=== PATIENT | female | born 1935 | race Caucasian/White ===

== ENCOUNTER → 2022-08-30 | Outpatient (CLI) | payer MEDICARE, SELFPAY ==
[2022-08-30 12:30] VITALS: PULSE 64; PULSE 67; PULSE 84; O2SAT 78; O2SAT 88; O2SAT 90; O2SAT 98
--- NOTE | 2022-08-30 13:19 | CPS ---
Patient came in on 2L SpO2 was in the 90's. Patient placed on RA for approximately 3 min and SpO2 dropped to 88%. Patient placed back on 1.5L(what she normally wears) and SpO2 came up to high 90's. Patient very unsteady and needs 2 person assist to get up from wheelchair. Patient normally does not walk much at home, only to the bathroom and back. Patient started test on 1.5L, at the 2 min clemente the patient's SpO2 was 78%. Patient was not SOB but walking takes maximal exertion. Patient's NC turned to 4L and rested in wheelchair. Patient walked another lap on 4L and at the 3 min clemente her pulse ox dropped to 88%. Patient had already walked much more then she ever will, so the test was stopped. Patient was not SOB through the whole test. Jimena KOCH
--- NOTE | 2022-08-31 05:39 | PCM.PSN.6M ---
PSN 6 Minute Walk Test 6 Minute Walk Test 6 Minute Walk Test: 6 Minute Walk Test PSN:6-Minute Walk Test Start: 08/30/22 13:10 Freq: Status: Active Protocol: RESP.6MINW Document 08/30/22 12:30 JR (Rec: 08/30/22 13:19 JR [id number]) 6 Minute Walk Test Date Performed 08/30/22 Time Performed 12:30 Height 5 ft 2 in Weight: 64.864 kg Weight in Pounds 143.[address]: Marcelino Stanton Assistive device used: None Pre-test Oxygen Delivery Method Room Air Pulse Ox (%) 88 Pulse Rate (60-100 beats/min) 67 Dyspnea Norma Scale (0-10) 0 Exertion Norma Scale (6-20) 6 1st minute Oxygen Flow Rate (L/min) (L/min) 1.5 Oxygen Delivery Method Nasal Cannula Pulse Ox (%) 90 Dyspnea Norma Scale (0-10) 0 Exertion Norma Scale (6-20) 13 2nd minute Oxygen Flow Rate (L/min) (L/min) 1.5 Oxygen Delivery Method Nasal Cannula Pulse Ox (%) 78 Pulse Rate (60-100 beats/min) 84 Dyspnea Norma Scale (0-10) 0 Exertion Norma Scale (6-20) 13 3rd minute Oxygen Flow Rate (L/min) (L/min) 4 Oxygen Delivery Method Nasal Cannula Pulse Ox (%) 88 Pulse Rate (60-100 beats/min) 84 Dyspnea Norma Scale (0-10) 0 Exertion Norma Scale (6-20) 13 Post-test Oxygen Flow Rate (L/min) (L/min) 4 Oxygen Delivery Method Nasal Cannula Pulse Ox (%) 98 Pulse Rate (60-100 beats/min) 64 Full Laps Walked 2 Partial Lap, Number of Tiles Walked 15 Total Distance Walked (ft) 133 Interpretation Interpretation: Therapy notes were reviewed. Patient noted to be 88% on room air and was placed on 1-1/2 L/min. Patient was significant musculoskeletal limitations and required 2 people to get up from a wheelchair. Patient ultimately required 5 L/min of supplemental oxygen to maintain saturations with ambulation. Patient was able to ambulate with the assistance of a walker for only 3 minutes and 133 feet, but family stated that this was much more than she ever well at home. These findings are consistent with a respiratory and musculoskeletal limitation exercise tolerance. Recommendations Recommendations: The patient requires 2 L/min at rest and 5 L/min with any exertion
== END | disposition home or self-care (01) ==
PROVIDERS: PCP Family Medicine; Visit Provider Internal Medicine Critical Care Medicine
DX: R09.02 Hypoxemia (principal)
CPT/HCPCS: 94618

== ENCOUNTER → 2022-09-02 | Outpatient (CLI) | payer MEDICARE, SELFPAY ==
--- NOTE | 2022-09-04 10:16 | PFT_ITS ---
INTRODUCTION: The patient is an 87-year-old female that presents for pulmonary function studies secondary to a diagnosis of hypoxemia. Respiratory therapy reported that the patient was unable to exhale enough volume to render a DLCO reading. Bronchodilators were used during testing. INTERPRETATION: Forced expiration spirometry demonstrates no evidence of a large airways o bstructive ventilatory defect. There was no significant response to aerosolized bronchodilators. Spirograms are of fair quality and plateau normally. Body plethysmography was performed and revealed a decreased TLC to 2.67 L, 62% of predicted, indicative of a moderate restrictive ventilatory impairment. Diffusing capacity was unable to be obtained. IMPRESSION: Moderate restrictive ventilatory impairment. Diffusing capacity was unable to be obtained.
== END | disposition home or self-care (01) ==
LOC: PSN 12:48
PROVIDERS: PCP Family Medicine; Visit Provider Internal Medicine Critical Care Medicine
DX: R09.02 Hypoxemia (principal)
CPT/HCPCS: 94060; 94726

== ENCOUNTER → 2022-10-09 | Outpatient (CLI) | payer MEDICARE, SELFPAY ==
--- NOTE | 2022-10-09 14:58 | CT_ITS ---
INDICATION: Difficulty breathing, hypoxia EXAMINATION: CT CHEST WITHOUT CONTRAST - CT Chest W/O Contrast Injection TECHNIQUE: Helically acquired images were obtained of the chest. A radiation dose optimization technique was used for this scan. IV Contrast dosage and agent: None. COMPARISON: None. FINDINGS: LUNGS, PLEURA AND LARGE AIRWAYS: Lung windows show diffuse interstitial fibrotic changes in both lung lomeli with honeycombing) the periphery of both lung lomeli, extending from apex to base. Diffuse septal thickening and evidence of peribronchial thickening suggestive of chronic bronchitis. There is no organized infiltrate or effusion. The pattern of opacification is suggestive of UIP. THYROID: No thyroid lesions. HEART AND PERICARDIUM: Heart size is normal. No pericardial effusion. CORONARY ARTERIES: Coronary artery calcification is seen. VESSELS: Thoracic aorta is not dilated. MEDIASTINUM AND BELKIS: No suspicious mediastinal or hilar adenopathy. There is a retrocardiac hiatal hernia with thickening of the distal esophagus suggesting reflux esophagitis. UPPER ABDOMEN: Limited cuts of the upper abdomen do not show a suspicious abnormality, there is a bowel loop interposed between the anterior edge of the liver and the peritoneal surface. BONES: Degenerative bony changes noted. CT/Chest without Contrast IMPRESSION: Diffuse interstitial fibrotic changes in both lung lomeli without organized infiltrate or effusion. There is also evidence of chronic bronchitis. No suspicious noncalcified mass or nodule. Findings in the lungs most suggestive of UIP. Calcified coronary vessels Degenerative bony changes No suspicious adenopathy Retrocardiac hiatal hernia with evidence to suspect GE reflux Electronically Signed: Varghese Hurtado MD at 10:08 EDT ,
== END | disposition home or self-care (01) ==
LOC: CT 14:57
PROVIDERS: PCP Family Medicine; Referring Provider Nurse Practitioner Acute Care; Visit Provider Nurse Practitioner Acute Care
DX: R09.02 Hypoxemia (principal)
CPT/HCPCS: 71250

== ENCOUNTER 2023-01-19 15:27 | Inpatient (IN) | payer MEDICARE, SELFPAY ==
[2023-01-19] VITALS (16 sets, daily range): BP systolic 115–174; BP diastolic 61–114; PULSE 64–76; RESP 12–44; TEMP 35.9–37.2; O2SAT 90–95; BMI 24.4
--- NOTE | 2023-01-19 15:34 | HP.PCM.HOS_ITS ---
HPI - General General Date of Admission: 01/19/23 Date of Service: 01/19/23 Chief Complaint: Shortness of breath HPI Narrative TORIBIO LEVINE, is a 88-year-old female history of pulmonary fibrosis on 2 L O2 at home, GERD, hypertension, bronchiectasis who presented to 01/19/2023 as a transfer from [facility] for to hypoxic respiratory failure. Patient fairly poor historian so history taken in part from report, patient and, largely from . Reportedly patient on Friday started saying she was not feeling well and had some vomiting and diarrhea and was not tolerating p.o. and felt very dehydrated so they presented to [facility] on Friday afternoon and she was admitted. reports that then evening she was not acting right and progressively over the past couple of days her breathing has gotten worse and they have intermittently had her on BiPAP and Airvo. He reports her breathing was otherwise in his usual state before evening. At [facility] she was pancultured and on vancomycin and Zosyn and also placed on steroids but continued to have high O2 requirements. Stable for transfer vancomycin was discontinued and she was on Zosyn and azithromycin, cultures have thus far been no growth. As she is established with Dr. Stanton for pulmonology hospitalist contacted for transfer given inability to wean O2. Patient seen with son at bedside and spoke with as well, patient reports her breathing might be slightly better than it was yesterday, endorses some left arm pain that is possibly been present since before the hospital but she had difficulty with timeline and symptomatology but possibly from elbow down. Reports somewhat of a cough since yesterday, still think she has been having some diarrhea but does not necessarily have abdominal pain and no significant nausea at this time. Denies chest pain. [facility] Medical History (Updated 01/19/23 @ 16:[address] Karen Schaeffer MD) Arthritis Bone fracture Bunion of unspecified foot Cataracts, both eyes GERD (gastroesophageal reflux disease) Gout Hearing problem History of back problems Hyperlipidemia Hypertension IBS (irritable bowel syndrome) Neuropathy Osteopenia Pneumonia Stroke Vision problems Home Medications allopurinol 200 mg tablet 200 mg PO DAILY 07/25/22 [History Last Taken Unknown] aspirin 81 mg tablet,delayed release 81 mg PO DAILY 07/25/22 [History Last Taken Unknown] atenolol 50 mg tablet 50 mg PO DAILY 07/25/22 [History Last Taken Unknown] doxepin 25 mg capsule 25 mg PO DAILY 07/25/22 [History Last Taken Unknown] enalapril maleate 5 mg tablet 20 mg PO DAILY HTN 07/25/22 [History Last Taken Unknown] furosemide 20 mg tablet 20 mg PO DAILY PRN 07/25/22 [History Last Taken Unknown] ibuprofen 600 mg tablet 600 mg PO Q8H PRN 07/25/22 [History Last Taken Unknown] sertraline 50 mg tablet 50 mg PO DAILY 07/25/22 [History Last Taken Unknown] guaifenesin 1,200 mg tablet, extended release 12 hr 1,200 mg PO Q12H #60 tabs 11/08/22 [Rx Last Taken Unknown] amoxicillin 875 mg-potassium clavulanate 125 mg tablet 1 tab PO BID #20 tabs 12/13/22 [Rx Last Taken Unknown] prednisone 10 mg tablet 10 mg PO QDAY #30 tabs 12/13/22 [Rx Last Taken Unknown] Allergy/AdvReac Type Severity Reaction Status Date / Time No Known Allergies Allergy Unverified 11/08/22 14:11 Family History (Reviewed 11/08/22 @ 14:35 by Emma Baker MECHANICAL ENGINEERING INTERN, MECHANICAL ENGINEERING INTERN-C) Father Alcoholism Mother Arthritis Cancer uterine Myocardial infarction Heart disease Surgical History (Reviewed 11/08/22 @ 14:35 by Emma Baker MECHANICAL ENGINEERING INTERN, MECHANICAL ENGINEERING INTERN-C) H/O cataract extraction H/O shoulder surgery H/O: hysterectomy History of tonsillectomy Social History Smoking Status: Never smoker alcohol intake: never substance use type: does not use ROS ROS Narrative General: Denies fever/chills, generalized malaise HENT: Denies headache, denies stuffy nose, denies sore throat EYES: Denies changes in vision Resp: Shortness of breath and cough Cardiac: Denies chest pain GI: Denies abdominal pain, nausea has been better than it was, has been having diarrhea : Has Briggs in place Extremity: Denies swelling MSK: Feels somewhat generally weak, left arm hurts Neuro: Denies any numbness/tingling Heme: Denies any bleeding or bruising Skin: Denies rashes Psychiatric: Feels somewhat anxious Vital Signs Vital Signs Vital Signs: Weight Weight: 60.6 kg Body Mass Index (BMI) 24.4 Physical Exam Narrative General: Alert, is a poor historian HEENT: Atraumatic, normocephalic Eyes: Anicteric, normal conjunctiva, extraocular movements grossly intact Neck: Supple Respiratory: Coarse, increased work of breathing Cardiovascular: Regular rate and rhythm GI: Soft, nontender, nondistended Extremities: No edema Musculoskeletal: Moving all extremities Neuro: No overt focal neurological deficits Skin: No rashes appreciated Psych: Appears slightly anxious Results Lab / Micro Data 01/19/23 16:30 01/19/23 16:30 Assessment & Plan Assessment/Plan (1) Acute and chronic respiratory failure with hypoxia: (2) Arthritis: (3) Bronchiectasis: (4) Pulmonary fibrosis: (5) Osteopenia: (6) Neuropathy: (7) Hypertension: (8) GERD (gastroesophageal reflux disease): (9) Diarrhea: PLAN: Plan #Acute on chronic hypoxic respiratory failure w/ pulmonary fibrosis and bron chiectasis on 2 L home O2 -Developed shortness of breath the day after admission for dehydration and diarrhea, BNP and chest x-ray ordered to assess for component of fluid overload, patient reportedly had been diuresed -Daily weights, I's and O's -Per echocardiogram at [facility] did not show any heart failure, records from [facility] indicate EF of 55 to 60% with mild concentric left ventricular hypertrophy, RVSP of 35 and inability to assess diastolic dysfunction -Additionally had a CTA 01/15 with no PE but multifocal infiltrates and had several chest x-rays most recent 01/18 with persistent bilateral multifocal infiltrates with possible minimal improvement in aeration in the right lung. -Continue O2, continue nebs, alb prn -continue Zosyn at this time -Obtain sputum culture if positive and will obtain COVID PCR -Feels reasonable to continue steroids at this time -Mucinex -Incentive spirometry, flutter valve -Medical Care Manager consult -We will obtain chest x-ray and labs as well -Her last pulmonary function studies were in August 2022 and demonstrated moderate restrictive ventilatory impairment in diffusion capacity unable to be obtained at that time. She most recently saw pulm in October 2022 and palliative was consulted and advised to follow-up with Dr. Stanton in 3 months -At that appointment 11/08/2022 it noted that within 6 months she had 2 respiratory illnesses that required antibiotics and/or hospitalizations -Patient on Airvo on presentation 80% with O2 sats low 90s, does have increased work of breathing, will trial BiPAP #Nausea and diarrhea -These were present on her initial admission on Friday and were what took her to the hospital because she felt very dehydrated and weak -It is possible that she received IVF and may have relative component of fluid overload though cannot rule out other etiologies -Viral panels, will obtain stool studies as well -I's and O's -Supportive care, patient still reports diarrhea but endorses that her nausea has overall been better -We will order KUB to assess for any abdominal patterns #Elevated troponin at [facility] -Troponin on presentation was 142 at [facility] with an EKG with nonischemic changes -No chest pain, suspect this is all demand in nature -Do not feel it is needed to repeat as patient not having chest pain and minimal concern for ACS #Urinary tract infection -[facility] facility documented urinary tract infection early sepsis as she had been febrile at her doctor's office and was tachycardic in the emergency department -UA there did have bacteria 3+, leuk esterase and nitrate -Do not see any culture results available -Continue Zosyn, will get blood cultures and UA #Elevated liver enzymes -AST 79 with ALT of 88 -Suspect this is secondary to critical illness but will currently working up infectious etiologies, no right upper quadrant pain at this time and alk phos within normal limits -Recheck in the a.m. #Leukocytosis -May be due to underlying infectious etiology +/- being on steroids, will trend, continue antibiotics #Hypokalemia -At [facility] -Recheck, will replace accordingly #Hypertension -We will monitor BP and add back home medications as appropriate #DVT ppx: Lovenox subcu CODE status:Discussed CODE status at length including difference between FULL code, DNR-CCA, and DNR-CC status with both patient and . Following discussions about the differences in these status, requested DNR/DNI but want all other interventions available up to that point. Advanced Care Planning Face to Face Time: 20 minutes. Karen Schaeffer MD Time spent in the patient's overall evaluation,decision-making process, review of diagnostic data, adjustment of management, discussion with other providers, nursing nursing and ancillary staff involved in patient's care documentation, 85 minutes Charges/Coding Visit Charges Inpatient E&M: 14069 Init Hosp L3
--- NOTE | 2023-01-19 16:30 | RAD_ITS ---
INDICATION: n and diarrhea EXAMINATION/TECHNIQUE: X-RAY - XR Abdomen 1 View COMPARISON: None FINDINGS: BOWEL GAS PATTERN: Nonspecific bowel gas pattern with multiple segments of gas-filled large and small bowel with only minimal distention. No daniel bowel obstruction. No evidence of pneumatosis. FREE AIR: Not assessed on a single supine view. ORGANOMEGALY: Not seen. CALCIFICATIONS: No abnormal calcifications observed. LOWER CHEST: No acute pathology. BONES AND SOFT TISSUES: Diffuse lumbar spondylosis mild to moderate levoscoliotic curvature. RAD/Abdomen Single View (Portable) IMPRESSION: 1. Gas-filled large and small bowel segments without evidence of obstruction. No pneumatosis. Electronically Signed: Damir Mcclure MD at 19:17 EDT ,
[2023-01-19 16:36] LABS: Absolute Lymphocyte Count 1.78 X10^3/uL (0.83-4.51); Absolute Neutrophil Count 18.1 X10^3/uL (2.0-7.7); Basophil# 0.06 X10^3/uL; Basophil% 0.3 % (0-1); Hematocrit 36.8 % (37-47); Hemoglobin 12.4 g/dL (12.0-15.0); Lymphocyte # 1.78 X10^3/ul (0.83-4.51); Lymphocyte % 7.7 % (19-41); Mean Corp Hgb Conc 33.7 g/dL (32-36); Mean Corpuscular Hgb 28.1 pg (27.0-32.0); Mean Corpuscular Volume 83.3 fL (81-99); Mean Platelet Vol. 9.7 fl (6.2-12.0); Monocyte# 2.35 X10^3/uL; Monocyte% 10.2 % (0-10); NRBC Flagged by Analyzer 0 % (0-5); Neutrophil # 18.07 X10^3/uL (2.7-7.7); Neutrophil % 78.5 % (47-70); POSITIVE DIFFERENTIAL YES; Platelet Count 434 K/mm3 (150-450); RBC Distribution Width CV 17.2 % (11.6-14.6); RBC Distribution Width SD 52.3 fl (35.1-43.9); Red Blood Count 4.42 M/mm3 (4.2-5.4)
[2023-01-19 16:37] LABS: Differential Indicated SCAN CRITERIA MET
--- NOTE | 2023-01-19 16:45 | RAD_ITS ---
INDICATION: acute hypoxic resp failure EXAMINATION/TECHNIQUE: X-RAY - XR Chest 1 View COMPARISON: CT of the chest dated 10/09/2022 FINDINGS: LIFE-SUPPORT AND LINES: 1. None HEART AND VESSELS: Cardiac silhouette is large. Vascular congestion noted. LUNGS AND PLEURAL SPACES: Elevation RIGHT hemidiaphragm extensive coarse interstitial prominence bilaterally corresponding to the CT abnormalities. Moderate asymmetry in the RIGHT upper lobe. No airspace consolidation. No effusion. No pulmonary mass is noted. MEDIASTINUM AND HILAR REGIONS: No masses adenopathy noted. No areas of calcification. Visualized upper airway is normal in position. BONY ELEMENTS: Remote postoperative changes of reverse RIGHT shoulder arthroplasty. RAD/Chest 1 View (Portable) IMPRESSION: 1. Cardiomegaly, and vascular congestion. 2. Extensive diffuse interstitial prominence bilaterally, background pattern of chronic interstitial lung disease corresponding to recent CT however mild worsening at the RIGHT apex, and superimposed infiltrate is consideration. No consolidation, no effusion. Electronically Signed: Damir Mcclure MD at 18:50 EDT ,
[2023-01-19 16:53] LABS: ALB/GLOB Ratio 0.4 RATIO (0.9-2.4); AST(SGOT) 79 U/L (15-37); Alanine Aminotransfer ALT/SGPT 88 U/L (13-56); Albumin, Serum 2.3 g/dL (3.2-5.0); Alkaline Phosphatase 90 U/L (45-117); Anion Gap 6 (5-15); BUN 24 mg/dL (7-18); BUN/Creat Ratio 25.4 RATIO (10-20); Calcium,Total 8.4 mg/dL (8.5-10.1); Chloride 104 mmol/L (98-107); Creatinine, Serum 0.94 mg/dL (0.55-1.02); EST Glomerular Filtration Rate 60 mL/min (>60); Est Glom Filt Rate - Afr Amer 72 mL/min (>60); Estimated Creatinine Clearance 33.98 ml/min; Globulin 5.8 g/dL (2.2-4.2); Glucose 110 mg/dL (74-106); Magnesium 1.6 mg/dL (1.6-2.6); Potassium 3.7 mmol/L (3.5-5.1); Protein, Total 8.1 g/dL (6.4-8.2); Sodium Level 141 mmol/L (136-145)
[2023-01-19] MEDS: Haloperidol Lactate 5 MG/ML Vial IV (16:56)
[2023-01-19] MEDS: 0.9% Saline Lock 10 ML Syringe IV ×2 (16:57→22:23)
[2023-01-19 17:02] LABS: Differential Comment SCANNED
[2023-01-19 17:05] LABS: BNP,B-Type NATRIURETIC PEPTIDE 419.6 pg/mL (0-100)
[2023-01-19 17:16] LABS: Bacteria 0 SEEN /hpf (None Seen); Mucous, Urine 0 SEEN /hpf (<or=2+)
[2023-01-19 17:18] LABS: Color, Urine Yellow (Yellow); Glucose, Dipstick Normal (Normal); Ketone-Dipstick Negative (Negative); Leukocyte Esterase-Dipstick 100 /ul (Negative); Nitrite-Dipstick Negative (Negative); Occult Blood-Urine 50 /ul (Negative); Protein-Dipstick 30 mg/dl (Negative); Specific Gravity, Urine 1.015 (1.002-1.030); Urine Bilirubin Dipstick Negative (Negative); Urine Clarity Sl. Cloudy (Clear); Urine Urobilinogen Normal (Normal)
[2023-01-19 17:31] LABS: Amorphous Sediment 1+ URATE; Red Blood Cells-Urine 5-10 SEEN /hpf (0-5); Squamous Epithelial Cells - UA 0-5 SEEN /hpf (5-10); White Blood Cells 10-25 SEEN /hpf (0-5)
[2023-01-19] MEDS: Furosemide 40 MG/4 ML Vial IV (18:22)
[2023-01-19] MEDS: Magnesium Sulfate 4gm/100mL 4 GM/100 ML IV.SOLN. IV (18:22)
[2023-01-19 18:43] LABS: M R Staph aureus DNA By PCR Negative (Negative); Probe Check PASS; Specimen Processing Control PASS
[2023-01-19] MEDS: Ipratropium/Albuterol Sulfate 3 ML AMPUL.NEB INHALATION ×2 (19:07→22:45)
[2023-01-19] MEDS: guaiFENesin 1,200 MG Tablet 1200 MG PO (21:41)
[2023-01-20] VITALS (25 sets, daily range): BP systolic 108–150; BP diastolic 56–81; PULSE 57–85; RESP 12–36; TEMP 35.8–37.1; O2SAT 89–98; BMI 24.1
[2023-01-20] MEDS: Ipratropium/Albuterol Sulfate 3 ML AMPUL.NEB INHALATION ×6 (04:07→23:38)
[2023-01-20 04:56] LABS: Absolute Lymphocyte Count 1.72 X10^3/uL (0.83-4.51); Absolute Neutrophil Count 14.1 X10^3/uL (2.0-7.7); Basophil% 0.6 % (0-1); Hematocrit 37.6 % (37-47); Hemoglobin 12.4 g/dL (12.0-15.0); Lymphocyte # 1.72 X10^3/ul (0.83-4.51); Mean Corpuscular Hgb 27.7 pg (27.0-32.0); Mean Corpuscular Volume 84.1 fL (81-99); Mean Platelet Vol. 9.7 fl (6.2-12.0); Monocyte# 0.76 X10^3/uL; Monocyte% 4.4 % (0-10); NRBC Flagged by Analyzer 0 % (0-5); Neutrophil # 14.06 X10^3/uL (2.7-7.7); Neutrophil % 81.6 % (47-70); Platelet Count 409 K/mm3 (150-450); RBC Distribution Width CV 17.2 % (11.6-14.6); RBC Distribution Width SD 52.6 fl (35.1-43.9); Red Blood Count 4.47 M/mm3 (4.2-5.4); White Blood Count 17.2 K/mm3 (4.4-11.0)
[2023-01-20 05:30] LABS: ALB/GLOB Ratio 0.4 RATIO (0.9-2.4); AST(SGOT) 60 U/L (15-37); Alanine Aminotransfer ALT/SGPT 88 U/L (13-56); Albumin, Serum 2.4 g/dL (3.2-5.0); Alkaline Phosphatase 93 U/L (45-117); Anion Gap 7 (5-15); BUN 33 mg/dL (7-18); BUN/Creat Ratio 35.8 RATIO (10-20); Calcium,Total 8.5 mg/dL (8.5-10.1); Chloride 101 mmol/L (98-107); Creatinine, Serum 0.92 mg/dL (0.55-1.02); EST Glomerular Filtration Rate 61 mL/min (>60); Est Glom Filt Rate - Afr Amer 74 mL/min (>60); Estimated Creatinine Clearance 34.72 ml/min; Globulin 5.8 g/dL (2.2-4.2); Glucose 192 mg/dL (74-106); Magnesium 3.2 mg/dL (1.6-2.6); Potassium 3.3 mmol/L (3.5-5.1); Protein, Total 8.2 g/dL (6.4-8.2); Sodium Level 140 mmol/L (136-145)
[2023-01-20] MEDS: 0.9% Saline Lock 10 ML Syringe IV (06:30)
--- NOTE | 2023-01-20 07:26 | PN.HOSP_ITS ---
Reason for Visit Reason for Visit: Diagnoses Polyneuropathy, unspecified (01/19/23) Essential (primary) hypertension (01/19/23) Bronchiectasis, uncomplicated (01/19/23) Pulmonary fibrosis, unspecified (01/19/23) Acute and chronic respiratory failure with hypoxia (01/19/23) Gastro-esophageal reflux disease without esophagitis (01/19/23) Unspecified osteoarthritis, unspecified site (01/19/23) Other specified disorders of bone density and structure, unspecified site (01/19/23) Diarrhea, unspecified (01/19/23) Subjective Subjective Patient is an 88-year-old lady with history of pulmonary fibrosis on home oxygen admitted with progressive shortness of breath and assessment of acute on chronic hypoxic respiratory failure made admitted for subsequent inpatient management Objective Data Objective Data Vital Signs: Vital Signs Temp Pulse Resp BP Pulse Ox O2 Del Method O2 Flow Rate 98.7 F 70 30 H 136/72 H 97 Bi-pap 55 01/20/23 04:00 01/20/23 07:04 01/20/23 07:04 01/20/23 06:00 01/20/23 07:04 01/20/23 06:00 01/19/23 22:00 FiO2 65 01/20/23 07:04 Oxygen Flow Rate (L/min) 55 Oxygen Delivery Method Bi-pap Weight: 59.6 kg Body Mass Index (BMI) 24.1 Intake & Output: Intake and Output for Last 24 Hours 01/18/23 01/19/23 01/20/23 23:59 23:59 23:59 Intake Total 150 / 350 200 / 200 Output Total 325 / 1125 1000 / 1000 Balance -175 / -775 -800 / -800 Lab / Micro Data 01/20/23 04:45 01/20/23 04:45 Labs: Laboratory Results - last 24 hr 01/19/23 16:30: WBC 23.0 H, RBC 4.42, Hgb 12.4, Hct 36.8 L, MCV 83.3, MCH 28.1, MCHC 33.7, RDW Std Deviation 52.3 H, RDW Coeff of Zbigniew 17.2 H, Plt Count 434, MPV 9.7, Immature Gran % (Auto) 3.300 H, Neut % (Auto) 78.5 H, Lymph % (Auto) 7.7 L, [place] % (Auto) 10.2 H, Eos % (Auto) 0.0, Baso % (Auto) 0.3, Absolute Neuts (auto) 18.1 H, Absolute Lymphs (auto) 1.78, Nucleated RBC % 0, Differential Comment SCANNED, Diff Path Review October, Sodium 141, Potassium 3.7, Chloride 104, Carbon Dioxide 31.0, Anion Gap 6, BUN 24 H, Creatinine 0.94, Estim Creat Clear Calc 33.98, Est GFR (MDRD) Af Amer 72, Est GFR (MDRD) Non-Af 60, BUN/Creatinine Ratio 25.4 H, Glucose 110 H, Calcium 8.4 L, Magnesium 1.6, Total Bilirubin 0.70, AST 79 H, ALT 88 H, Alkaline Phosphatase 90, B-Natriuretic Peptide 419.6 H, Total Protein 8.1, Albumin 2.3 L, Globulin 5.8 H, Albumin/Globulin Ratio 0.4 L 01/19/23 17:10: Urine Color Yellow, Urine Clarity Sl. Cloudy, Urine pH 6.0, Ur Specific [place] 1.015, Urine Protein 30 H, Urine Glucose (UA) Normal, Urine Ketones Negative, Urine Occult Blood 50 H, Urine Nitrite Negative, Urine Bilirubin Negative, Urine Urobilinogen Normal, Ur Leukocyte Esterase 100 H, Urine RBC 5-10 SEEN, Urine WBC 10-25 SEEN, Ur Squamous Epith Cells 0-5 SEEN, Amorphous Sediment 1+ URATE, Urine Bacteria 0 SEEN, Urine Mucus 0 SEEN, MRSA (PCR) Negative 01/20/23 04:45: WBC 17.2 H, RBC 4.47, Hgb 12.4, Hct 37.6, MCV 84.1, MCH 27.7, MCHC 33.0, RDW Std Deviation 52.6 H, RDW Coeff of Zbigniew 17.2 H, Plt Count 409, MPV 9.7, Immature Gran % (Auto) 3.400 H, Neut % (Auto) 81.6 H, Lymph % (Auto) 10.0 L , [place] % (Auto) 4.4, Eos % (Auto) 0.0, Baso % (Auto) 0.6, Absolute Neuts (auto) 14.1 H, Absolute Lymphs (auto) 1.72, Nucleated RBC % 0, Sodium 140, Potassium 3.3 L, Chloride 101, Carbon Dioxide 32.0, Anion Gap 7, BUN 33 H, Creatinine 0.92, Estim Creat Clear Calc 34.72, Est GFR (MDRD) Af Amer 74, Est GFR (MDRD) Non-Af 61, BUN/Creatinine Ratio 35.8 H, Glucose 192 H, Calcium 8.5, Magnesium 3.2 H, Total Bilirubin 0.90, AST 60 H, ALT 88 H, Alkaline Phosphatase 93, Total Protein 8.2, Albumin 2.4 L, Globulin 5.8 H, Albumin/Globulin Ratio 0.4 L, TSH 0.30 L Micro: Microbiology 01/19/23 15:40 Mucosa - Nasopharyngeal Respiratory Panel (PCR) - Final 01/19/23 15:40 Mucosa - Nasopharyngeal Coronavirus COVID-19 PCR - Final 01/19/23 17:10 Urine Catheter - Briggs Legionella Antigen - Final 01/19/23 17:10 Urine Catheter - Briggs Streptococcus pneumoniae Antigen (M - Final Radiography Diagnostic Testing: Radiology Impression KUB X-Ray 01/19/23 16:30 IMPRESSION: 1. Gas-filled large and small bowel segments without evidence of obstruction. No pneumatosis. Electronically Signed: Damir Mcclure MD at 19:17 EDT , Chest X-Ray 01/19/23 16:45 IMPRESSION: 1. Cardiomegaly, and vascular congestion. 2. Extensive diffuse interstitial prominence bilaterally, background pattern of chronic interstitial lung disease corresponding to recent CT however mild worsening at the RIGHT apex, and superimposed infiltrate is consideration. No consolidation, no effusion. Electronically Signed: Damir Mcclure MD at 18:50 EDT , Physical Exam Narrative GENERAL: Neck at rest on airvo HEENT: Atraumatic; normocephalic EYES; Anicteric, Normal Conjunctiva NECK; supple, normal thyroid, RESPIRATORY: Diminished to auscultation CARDIOVASCULAR: Regular S1 S2, GI: soft, normoactive bowel sounds, : No Renal angle tenderness; EXTREMITIES: No edema, no clubbing, MUSCULOSKELETAL: no muscle wasting NEURO: Awake; no lateralizing signs. SKIN: No Rash PSYCH; Flat affect Assessment & Plan Assessment/Plan (1) Acute and chronic respiratory failure with hypoxia: PLAN: Plan Patient is an 88-year-old lady with history of pulmonary fibrosis on home oxygen admitted with progressive shortness of breath and assessment of acute on chronic hypoxic respiratory failure made admitted for subsequent inpatient management 1. Acute on chronic hypoxic respiratory failure ? Secondary to combination of pulmonary fibrosis as well as bronchiectasis admitted to the intensive care unit placed on noninvasive ventilation BiPAP patient was also started on antibiotic therapy with Zosyn in addition to systemic steroid and bronchodilator treatment. Discussion regarding hospice/palliative care held with family 2. Elevated troponin ? Suspected to be secondary to demand ischemia we will continue monitoring 3. Acute cystitis ? Patient is on antibiotic therapy will follow up with culture result 4. Hypokalemia ? Corrected per protocol 5. Hypertension - Blood pressure controlled, home medications continued with dose adjustment as needed 6. DVT prophylaxis ? SC Lovenox Time spent in the patient's overall evaluation,decision-making process, review of diagnostic data, adjustment of management, discussion with other providers, nursing nursing and ancillary staff involved in patient's care documentation, 50 minutes Charges/Coding Visit Charges Inpatient E&M: 36815 [facility] L3
--- NOTE | 2023-01-20 08:07 | CON.PCM.CC_ITS ---
Assessment & Plan Assessment/Plan (1) Acute and chronic respiratory failure with hypoxia: PLAN: Plan RECOMMENDATIONS: 1. Wean FiO2 to maintain oxygen saturations at or above 90%. 2. Continue bronchodilators and steroids. 3. Continue empiric antimicrobials. 4. Continue gentle diuresis as tolerated by hemodynamics and renal function. 5. Continue appropriate DVT prophylaxis. 6. Mobilize patient as tolerated. 7. Given plans for patient to proceed with hospice care enrollment, we will sign off. Please call with any additional questions. IMPRESSIONS: 1. Acute on chronic hypoxemic respiratory failure The patient has a baseline 2 L/min oxygen requirement at rest and 5 L/min with exertion. In addition, she has baseline radiographic evidence of pulmonary fibrosis. The patient was ultimately transferred to [facility] from an outside hospital due to failure to wean supplemental O2. I do suspect that this is likely secondary to hypervolemia coupled with progressive interstitial disease and potential superimposed pneumonia. Therefore, I agree with continuing gentle diuresis as tolerated by hemodynamics and renal function. In addition, the patient will be continued on empiric antimicrobials along with bronchodilators and steroids. Plan to continue heated high flow oxygen with a goal to wean FiO2 to maintain saturations at or above 90%. Ultimately, will need to discuss goals of care with the patient and family. The idea of referral to palliative care medicine was discussed with the patient during her last outpatient pulmonary visit in October 2022. The patient and family seem agreeable to referral to hospice care services. 2. Advanced age/history of hypertension/depression/anxiety Complicates care, management, recovery and prognosis. Continue home medications as indicated. This note was generated with Line[employer] dictation software. It may contain incorrect words, spelling, and punctuation that were not noted in checking the note before signing. HPI Consult Data Date of Consult: 01/21/23 HPI Narrative Reason for Consultation: Acute on chronic respiratory failure HPI Narrative: The patient is an 88-year-old female, with a history as outlined below, who presented to the hospital as a transfer of care from [facility] with nausea, vomiting and shortness of breath. The patient has a known history of chronic hypoxemic respiratory failure with a baseline 2 L/min oxygen requirement at rest and 5 L/min with exertion, along with restrictive lung disease and radiographic evidence of pulmonary fibrosis. The patient is followed by Dr. Stanton in the pulmonary medicine clinic. During her last office visit in October 2022, the idea of referral to palliative care medicine was discussed. The patient was initially placed on broad-spectrum antimicrobials prior to her transfer and was maintained on supplemental oxygen, breathing treatments and steroids. On transfer to [facility], the patient was noted to be afebrile and hemodynamically stable. She was initially maintained on a combination of heated high flow oxygen and BiPAP. Initial laboratory evaluation revealed a white blood cell count of 23,000. BNP was mildly elevated at 419. Urinalysis was unrevealing. MRSA screen was negative. Respiratory viral panel was negative. COVID PCR was negative. Strep and urine Legionella antigens were negative. Blood cultures are currently pending. The patient was ultimately placed on IV diuretic therapy. As of this morning, she was able to be weaned to heated high flow oxygen with an FiO2 requirement of 50% and flow rate of 50 L/min. She remains on scheduled bronchodilators and steroids, along with empiric antimicrobials. Repeat chest x-ray demonstrated cardiomegaly and pulmonary vascular congestion. [facility] Medical History (Updated 01/19/23 @ 16:[address] Karen Schaeffer MD) Arthritis Bone fracture Bunion of unspecified foot Cataracts, both eyes GERD (gastroesophageal reflux disease) Gout Hearing problem History of back problems Hyperlipidemia Hypertension IBS (irritable bowel syndrome) Neuropathy Osteopenia Pneumonia Stroke Vision problems Home Medications allopurinol 200 mg tablet 200 mg PO DAILY 07/25/22 [History Last Taken Unknown] aspirin 81 mg tablet,delayed release 81 mg PO DAILY 07/25/22 [History Last Taken Unknown] atenolol 50 mg tablet 50 mg PO DAILY 07/25/22 [History Last Taken Unknown] doxepin 25 mg capsule 25 mg PO DAILY 07/25/22 [History Last Taken Unknown] enalapril maleate 5 mg tablet 20 mg PO DAILY HTN 07/25/22 [History Last Taken Unknown] furosemide 20 mg tablet 20 mg PO DAILY PRN 07/25/22 [History Last Taken Unknown] ibuprofen 600 mg tablet 600 mg PO Q8H PRN 07/25/22 [History Last Taken Unknown] sertraline 50 mg tablet 50 mg PO DAILY 07/25/22 [History Last Taken Unknown] guaifenesin 1,200 mg tablet, extended release 12 hr 1,200 mg PO Q12H #60 tabs 11/08/22 [Rx Last Taken Unknown] amoxicillin 875 mg-potassium clavulanate 125 mg tablet 1 tab PO BID #20 tabs 12/13/22 [Rx Last Taken Unknown] prednisone 10 mg tablet 10 mg PO QDAY #30 tabs 12/13/22 [Rx Last Taken Unknown] Allergy/AdvReac Type Severity Reaction Status Date / Time No Known Allergies Allergy Unverified 11/08/22 14:11 Family History (Reviewed 11/08/22 @ 14:35 by Emma Baker [employer]PERVIS[employer], [employer]-C) Father Alcoholism Mother Arthritis Cancer uterine Myocardial infarction Heart disease Surgical History H/O cataract extraction H/O shoulder surgery H/O: hysterectomy History of tonsillectomy Social History Smoking Status: Never smoker alcohol intake: never substance use type: does not use ROS ROS Narrative 10 systems were reviewed with pertinent positives as noted in the HPI above. Physical Exam Const alert Constitutional Narrative: Chronically ill in appearance. Poor historian. Currently on heated high flow nasal cannula. HEENT normocephalic and head/scalp atraumatic Eyes PERRL, EOMs intact bilaterally and conjunctivae normal Neck supple General: trachea midline Chest inspection of chest normal Resp normal respiratory effort Auscultation: rales Cardio regular rate and regular rhythm GI normal to inspection, nondistended, normoactive bowel sounds Extremity no clubbing, cyanosis or edema Skin no rashes or lesions noted Neuro moves all extremities and no focal motor deficits Psych cooperative and affect normal Lab / Micro Data 01/21/23 05:39 01/21/23 05:39 Labs: Laboratory Results - last 24 hr 01/19/23 16:30: WBC 23.0 H, RBC 4.42, Hgb 12.4, Hct 36.8 L, MCV 83.3, MCH 28.1, MCHC 33.7, RDW Std Deviation 52.3 H, RDW Coeff of Zbigniew 17.2 H, Plt Count 434, MPV 9.7, Immature Gran % (Auto) 3.300 H, Neut % (Auto) 78.5 H, Lymph % (Auto) 7.7 L, [place] % (Auto) 10.2 H, Eos % (Auto) 0.0, Baso % (Auto) 0.3, Absolute Neuts (auto) 18.1 H, Absolute Lymphs (auto) 1.78, Nucleated RBC % 0, Differential Comment SCANNED, Diff Path Review October, Sodium 141, Potassium 3.7, Chloride 104, Carbon Dioxide 31.0, Anion Gap 6, BUN 24 H, Creatinine 0.94, Estim Creat Clear Calc 33.98, Est GFR (MDRD) Af Amer 72, Est GFR (MDRD) Non-Af 60, BUN/Creatinine Ratio 25.4 H, Glucose 110 H, Calcium 8.4 L, Magnesium 1.6, Total Bilirubin 0.70, AST 79 H, ALT 88 H, Alkaline Phosphatase 90, B-Natriuretic Peptide 419.6 H, Total Protein 8.1, Albumin 2.3 L, Globulin 5.8 H, Albumin/Globulin Ratio 0.4 L 01/19/23 17:10: Urine Color Yellow, Urine Clarity Sl. Cloudy, Urine pH 6.0, Ur Specific [place] 1.015, Urine Protein 30 H, Urine Glucose (UA) Normal, Urine Ketones Negative, Urine Occult Blood 50 H, Urine Nitrite Negative, Urine Bilirubin Negative, Urine Urobilinogen Normal, Ur Leukocyte Esterase 100 H, Urine RBC 5-10 SEEN, Urine WBC 10-25 SEEN, Ur Squamous Epith Cells 0-5 SEEN, Amorphous Sediment 1+ URATE, Urine Bacteria 0 SEEN, Urine Mucus 0 SEEN, MRSA (PCR) Negative 01/20/23 04:45: WBC 17.2 H, RBC 4.47, Hgb 12.4, Hct 37.6, MCV 84.1, MCH 27.7, MCHC 33.0, RDW Std Deviation 52.6 H, RDW Coeff of Zbigniew 17.2 H, Plt Count 409, MPV 9.7, Immature Gran % (Auto) 3.400 H, Neut % (Auto) 81.6 H, Lymph % (Auto) 10.0 L , [place] % (Auto) 4.4, Eos % (Auto) 0.0, Baso % (Auto) 0.6, Absolute Neuts (auto) 14.1 H, Absolute Lymphs (auto) 1.72, Nucleated RBC % 0, Sodium 140, Potassium 3.3 L, Chloride 101, Carbon Dioxide 32.0, Anion Gap 7, BUN 33 H, Creatinine 0.92, Estim Creat Clear Calc 34.72, Est GFR (MDRD) Af Amer 74, Est GFR (MDRD) Non-Af 61, BUN/Creatinine Ratio 35.8 H, Glucose 192 H, Calcium 8.5, Magnesium 3.2 H, Total Bilirubin 0.90, AST 60 H, ALT 88 H, Alkaline Phosphatase 93, Total Protein 8.2, Albumin 2.4 L, Globulin 5.8 H, Albumin/Globulin Ratio 0.4 L, TSH 0.30 L Micro: Microbiology 01/19/23 15:40 Mucosa - Nasopharyngeal Respiratory Panel (PCR) - Final 01/19/23 15:40 Mucosa - Nasopharyngeal Coronavirus COVID-19 PCR - Final 01/19/23 17:10 Urine Catheter - Briggs Legionella Antigen - Final 01/19/23 17:10 Urine Catheter - Briggs Streptococcus pneumoniae Antigen (M - Final Radiology Impression KUB X-Ray 01/19/23 16:30 IMPRESSION: 1. Gas-filled large and small bowel segments without evidence of obstruction. No pneumatosis. Electronically Signed: Damir Mcclure MD at 19:17 EDT , Chest X-Ray 01/19/23 16:45 IMPRESSION: 1. Cardiomegaly, and vascular congestion. 2. Extensive diffuse interstitial prominence bilaterally, background pattern of chronic interstitial lung disease corresponding to recent CT however mild worsening at the RIGHT apex, and superimposed infiltrate is consideration. No consolidation, no effusion. Electronically Signed: Damir Mcclure MD at 18:50 EDT , Charges/Coding Visit Charges Inpatient E&M: 75643 Init Hosp L3
--- NOTE | 2023-01-20 09:28 | CASEMGMT ---
Addendum entered by Niru Luque 01/20/23 10:44: GILLES MORRIS into pt room, spoke with pt 2 dtrs in the waiting area. Dtrs have differing opinions on pt care. They are asking to speak to Nicole. Discussed multiple options of Home with HHC, SNF stay. Pt dtr mentioned hospice as well as palliative care but pt did not let them come back. Updated Nicole who will speak with pt. Original Note: GILLES MORRIS Assessment: Face to Face with pt for initial transition planning/care coordination assessment. GILLES MORRIS introduced self and role at [facility], pt voices understanding and consents to assessment. Pt is A/O x4 and answers all questions appropriately at this time. Pt sitting up in bed with bipap on in no distress. Care providers, pharmacy, and demographics verified/updated. Admitting Dx: acute hypoxic resp failure PCP:Claudia Specialists:aden Stanton [facility] Insurance: [email or web address] [facility] Prescription Benefit: yes LNOK: Trey Smith, ; Denia Smith, dtr Living Arrangements: Pt lives with in a single story home with a ramp to enter. Pt reports her assists her with bathing and dressing. Pt states her dtrs bring in food frequently otherwise her prepares meals. Pt states gets groceries and does laundry. Pt denies concerns at home. Transportation: Pt transports pt to medical appts. DME/HHC/SNF: Pt has oxygen through [place]. Per notes it is 2L at rest and 5L with exertion, will verify. Pt reports she has portable tanks and a pox. Pt has a walker but does not use anymore. She states she is w/c bound. Pt has a slide board and shower chair. Pt has had HHC in the past but is unsure of which agency provided this. She has been to [facility]. Pt states no concerns with going home at time of dc. Pt states she wants to return home at sd. She states she does not want any HHC as they have already went through this. Pt dtrs in a family meeting at this time. GILLES MORRIS to follow with daughters per pt request. Pt states no further concerns/needs. Advised pt to ask CM if any further question/concerns/needs arise, voices understanding. Pt Goal: Home Plan: TBD
[2023-01-20] MEDS: Potassium Chloride Oral Soln 20 MEQ/15 ML UDC 40 MEQ PO (10:45)
[2023-01-20] MEDS: Enoxaparin 40 MG/0.4 ML Syringe SC (10:46)
[2023-01-20] MEDS: guaiFENesin 1,200 MG Tablet 1200 MG PO ×2 (10:46→20:39)
[2023-01-20] MEDS: Furosemide 40 MG/4 ML Vial IV (10:46)
--- NOTE | 2023-01-20 11:26 | CASEMGMT ---
SW met with patient's two daughters Denia and Lachelle Smith per their request. Both daughters appeared to be overwhelmed with patient's current condition. SW listened and provided emotional support while patient's daughters talked through the situation. They are concerned about patient going home as they do not feel patient's will be able to manage patient's care. Patient's is very particular about patient's care and who does it. They asked about options at d/c. SW explained if patient goes to a assisted she would have to do therapy otherwise it would be private pay. SW provided them with a private duty list. They also talked about Hospice. SW explained Hospice at home vs SNF vs inpatient Hospice unit. After much discussion amongst sisters and SW listening they are leaning towards Hospice in the inpatient unit. They will talk with patient and patient's . Nicole Tejeda BENEFITS PROCESSOR JENNIFER
--- NOTE | 2023-01-20 11:40 | CASEMGMT ---
SW spoke with patient's daughters and . SW answered their questions regarding Hospice. They asked SW to make the referral to Hospice and they will meet with the liaison. SW called Hospice regarding the referral and faxed information. Nicole RODRIGUEZ
--- NOTE | 2023-01-20 13:30 | CASEMGMT ---
Hospice is at [facility] and met with family. Family signed with Hospice, however they wanted to wait a couple of days. SW will check in with physician in am. Nicole RODRIGUEZ
[2023-01-20] MEDS: Acetaminophen 325 MG Tablet 650 MG PO (14:03)
[2023-01-21] VITALS (11 sets, daily range): BP systolic 143–160; BP diastolic 70–106; PULSE 73–103; RESP 12–35; TEMP 35.8–36.8; O2SAT 74–95; BMI 24.3
[2023-01-21] MEDS: Albuterol 2.5 MG/3 ML VIAL.NEB. INHALATION (04:18)
--- NOTE | 2023-01-21 04:37 | CPS ---
Patient placed back on Bipap due to increased work of breathing
[2023-01-21] MEDS: Methylprednisolone Sod Succ 40 MG/ML VIAL IV (05:43)
[2023-01-21 06:05] LABS: Absolute Lymphocyte Count 1.88 X10^3/uL (0.83-4.51); Absolute Neutrophil Count 12.1 X10^3/uL (2.0-7.7); Basophil# 0.03 X10^3/uL; Basophil% 0.2 % (0-1); Hematocrit 36.6 % (37-47); Hemoglobin 11.9 g/dL (12.0-15.0); Lymphocyte # 1.88 X10^3/ul (0.83-4.51); Lymphocyte % 12.2 % (19-41); Mean Corp Hgb Conc 32.5 g/dL (32-36); Mean Corpuscular Hgb 27.6 pg (27.0-32.0); Mean Corpuscular Volume 84.9 fL (81-99); Mean Platelet Vol. 10.1 fl (6.2-12.0); Monocyte# 0.74 X10^3/uL; Monocyte% 4.8 % (0-10); NRBC Flagged by Analyzer 0 % (0-5); Neutrophil # 12.07 X10^3/uL (2.7-7.7); Neutrophil % 78.2 % (47-70); Platelet Count 404 K/mm3 (150-450); RBC Distribution Width CV 17.2 % (11.6-14.6); RBC Distribution Width SD 53.1 fl (35.1-43.9); Red Blood Count 4.31 M/mm3 (4.2-5.4); White Blood Count 15.4 K/mm3 (4.4-11.0)
[2023-01-21] MEDS: Furosemide 40 MG/4 ML Vial IV ×2 (06:21→09:40)
[2023-01-21 06:37] LABS: Anion Gap 5 (5-15); BUN 39 mg/dL (7-18); BUN/Creat Ratio 43.7 RATIO (10-20); Calcium,Total 8.7 mg/dL (8.5-10.1); Chloride 101 mmol/L (98-107); Creatinine, Serum 0.89 mg/dL (0.55-1.02); EST Glomerular Filtration Rate 64 mL/min (>60); Est Glom Filt Rate - Afr Amer 77 mL/min (>60); Estimated Creatinine Clearance 35.89 ml/min; Glucose 138 mg/dL (74-106); Magnesium 2.7 mg/dL (1.6-2.6); Phosphorus 3.5 mg/dL (2.5-4.9); Potassium 3.8 mmol/L (3.5-5.1); Sodium Level 139 mmol/L (136-145)
--- NOTE | 2023-01-21 07:00 | NURSING ---
Pt requiring Bipap last night from airvo d/t respirations in 30s-40s and increased coarse crackles in left lower lobe. Pt on 85% Fio2 on bipap, MD made aware and this RN was given verbal order for 40mg IV lasix x1. Respiratory was made aware of the situation as well.
[2023-01-21] MEDS: Ipratropium/Albuterol Sulfate 3 ML AMPUL.NEB INHALATION ×2 (07:02→10:44)
--- NOTE | 2023-01-21 08:18 | PCM.PN.HOSP ---
Reason for Visit Reason for Visit: Diagnoses Polyneuropathy, unspecified (01/19/23) Essential (primary) hypertension (01/19/23) Bronchiectasis, uncomplicated (01/19/23) Pulmonary fibrosis, unspecified (01/19/23) Acute and chronic respiratory failure with hypoxia (01/19/23) Gastro-esophageal reflux disease without esophagitis (01/19/23) Unspecified osteoarthritis, unspecified site (01/19/23) Other specified disorders of bone density and structure, unspecified site (01/19/23) Diarrhea, unspecified (01/19/23) Subjective Subjective Patient was transferred from intensive care unit to the progressive care unit. Still remains on Airvo. Consult was placed to the hospice team and family did agree. Objective Data Objective Data Vital Signs: Vital Signs Temp Pulse Resp BP Pulse Ox O2 Del Method O2 Flow Rate 96.5 F L 95 24 H 143/106 H 93 Bi-pap 50 01/21/23 07:30 01/21/23 07:30 01/21/23 07:30 01/21/23 07:30 01/21/23 07:30 01/21/23 07:30 01/21/23 04:00 FiO2 80 01/21/23 06:30 Oxygen Flow Rate (L/min) 50 Oxygen Delivery Method Bi-pap Weight: 60.3 kg Body Mass Index (BMI) 24.3 Intake & Output: Intake and Output for Last 24 Hours 01/19/23 01/20/23 01/21/23 23:59 23:59 23:59 Intake Total 150 / 350 500 / 500 50 / 50 Output Total 325 / 1125 1800 / 1800 250 / 250 Balance -175 / -775 -1300 / -1300 -200 / -200 Lab / Micro Data 01/21/23 05:39 01/21/23 05:39 Labs: Laboratory Results - last 24 hr 01/21/23 05:39: WBC 15.4 H, RBC 4.31, Hgb 11.9 L, Hct 36.6 L, MCV 84.9, MCH 27.6, MCHC 32.5, RDW Std Deviation 53.1 H, RDW Coeff of Zbigniew 17.2 H, Plt Count 404, MPV 10.1, Immature Gran % (Auto) 4.600 H, Neut % (Auto) 78.2 H, Lymph % (Auto) 12.2 L, [place] % (Auto) 4.8, Eos % (Auto) 0.0, Baso % (Auto) 0.2, Absolute Neuts (auto) 12.1 H, Absolute Lymphs (auto) 1.88, Nucleated RBC % 0, Sodium 139, Potassium 3.8, Chloride 101, Carbon Dioxide 33.0 H, Anion Gap 5, BUN 39 H, Creatinine 0.89, Estim Creat Clear Calc 35.89, Est GFR (MDRD) Af Amer 77, Est GFR (MDRD) Non-Af 64, BUN/Creatinine Ratio 43.7 H, Glucose 138 H, Calcium 8.7, Phosphorus 3.5, Magnesium 2.7 H Micro: Microbiology 01/19/23 15:40 Mucosa - Nasopharyngeal Respiratory Panel (PCR) - Final 01/19/23 15:40 Mucosa - Nasopharyngeal Coronavirus COVID-19 PCR - Final 01/19/23 17:10 Urine Catheter - Briggs Legionella Antigen - Final 01/19/23 17:10 Urine Catheter - Briggs Streptococcus pneumoniae Antigen (M - Final Physical Exam Narrative GENERAL: Neck at rest on airvo HEENT: Atraumatic; normocephalic EYES; Anicteric, Normal Conjunctiva NECK; supple, normal thyroid, RESPIRATORY: Diminished to auscultation CARDIOVASCULAR: Regular S1 S2, GI: soft, normoactive bowel sounds, : No Renal angle tenderness; EXTREMITIES: No edema, no clubbing, MUSCULOSKELETAL: no muscle wasting NEURO: Awake; no lateralizing signs. SKIN: No Rash PSYCH; Flat affect Assessment & Plan Assessment/Plan (1) Acute and chronic respiratory failure with hypoxia: PLAN: Plan Patient is an 88-year-old lady with history of pulmonary fibrosis on home oxygen admitted with progressive shortness of breath and assessment of acute on chronic hypoxic respiratory failure made admitted for subsequent inpatient management 1. Acute on chronic hypoxic respiratory failure ? Secondary to combination of pulmonary fibrosis as well as bronchiectasis admitted to the intensive care unit placed on noninvasive ventilation BiPAP patient was also started on antibiotic therapy with Zosyn in addition to systemic steroid and bronchodilator treatment. Discussion regarding hospice/palliative care held with family ? 01/21/2023 Patient was transferred from intensive care unit to the progressive care unit. Still remains on Airvo. Consult was placed to the hospice team and family did agree. 2. Elevated troponin ? Suspected to be secondary to demand ischemia we will continue monitoring 3. Acute cystitis ? Patient is on antibiotic therapy will follow up with culture result 4. Hypokalemia ? Corrected per protocol 5. Hypertension - Blood pressure controlled, home medications continued with dose adjustment as needed 6. DVT prophylaxis ? SC Lovenox Time spent in the patient's overall evaluation,decision-making process, review of diagnostic data, adjustment of management, discussion with other providers, nursing nursing and ancillary staff involved in patient's care documentation, 35 minutes
[2023-01-21] MEDS: Enoxaparin 40 MG/0.4 ML Syringe SC (09:39)
[2023-01-21] MEDS: guaiFENesin 1,200 MG Tablet 1200 MG PO (09:39)
[2023-01-21] MEDS: 0.9% Saline Lock 10 ML Syringe IV (09:40)
[2023-01-21 10:01] LABS: Pathologist Review Reviewed
--- NOTE | 2023-01-21 10:45 | CASEMGMT ---
MERARI received a call from Sanam with Hospice. Sanam said she spoke with patient's daughter Denia and they would like patient to transition to the inpatient Hospice unit today. A congressional aide will be at [facility] to evaluate patient. MERARI spoke with patient's daughter Denia and she confirmed they are ready to move patient to the inpatient unit. MERARI let Denia know a congressional aide is on her way to evaluate patient. Denia thanked MERARI for the assistance. MERARI updated RN and charge loader. Nicole RODRIGUEZ
[2023-01-21] MEDS: Acetaminophen 325 MG Tablet 650 MG PO (11:38)
--- NOTE | 2023-01-21 13:00 | DS.PCM_ITS ---
Providers Date of Admission: 01/19/23 Date of Discharge: 01/21/23 Primary Care Physician: Dr. Ag Taylor MD Consultations 01/19/23 15:32 Consult: Preform Machine Operator / Pulmonary Medicine Routine Consulting Provider: Pulmonary Medicine mariama Huertas Reason for Consult: acute hypoxic resp failure EMERGENT Consult: No MD Notified: Yes Date Notified: 01/19/23 Time Notified: 15:33 Method of Notification: Physician Initiated Comments:: Dr. Luna spoke to Dr. Stanton Reason For Visit: ACUTE HYPOXIC RESPIRATORY FAILURE ON CHRONIC Diagnosis Discharge Diagnosis (1) Acute and chronic respiratory failure with hypoxia: Status: Chronic Code(s): J96.21 - Acute and chronic respiratory failure with hypoxia Plan Patient is an 88-year-old lady with history of pulmonary fibrosis on home oxygen admitted with progressive shortness of breath and assessment of acute on chronic hypoxic respiratory failure made admitted for subsequent inpatient management 1. Acute on chronic hypoxic respiratory failure ? Secondary to combination of pulmonary fibrosis as well as bronchiectasis admitted to the intensive care unit placed on noninvasive ventilation BiPAP patient was also started on antibiotic therapy with Zosyn in addition to systemic steroid and bronchodilator treatment. Discussion regarding hospice/palliative care held with family ? 01/21/2023 Patient was transferred from intensive care unit to the progressive care unit. Still remains on Airvo. Consult was placed to the hospice team and family did agree. 2. Elevated troponin ? Suspected to be secondary to demand ischemia we will continue monitoring 3. Acute cystitis ? Patient is on antibiotic therapy will follow up with culture result 4. Hypokalemia ? Corrected per protocol 5. Hypertension - Blood pressure controlled, home medications continued with dose adjustment as needed 6. DVT prophylaxis ? SC Lovenox Time spent in the patient's overall evaluation,decision-making process, review of diagnostic data, adjustment of management, discussion with other providers, nursing nursing and ancillary staff involved in patient's care documentation, 35 minutes Medications at Discharge Home Medications allopurinol 200 mg tablet 200 mg PO DAILY 07/25/22 doxepin 25 mg capsule 25 mg PO DAILY 07/25/22 enalapril maleate 5 mg tablet 20 mg PO DAILY HTN 07/25/22 ibuprofen 600 mg tablet 600 mg PO Q8H PRN 07/25/22 sertraline 50 mg tablet 50 mg PO DAILY 07/25/22 acetaminophen 325 mg tablet 650 mg (2 x 325 mg) PO Q4H PRN PRN Pain 1-10 Or Fever #0 tabs 01/21/23 albuterol sulfate 2.5 mg/3 mL (0.083 %) solution for nebulization 2.5 mg (3 mL) inhalation Q2H PRN PRN SOB/Wheezing #0 mL 01/21/23 atropine 1 % eye drops 4 drp sublingual Q1H PRN PRN Secretions #0 mL 01/21/23 bisacodyl 10 mg rectal suppository 10 mg NH DAILY PRN PRN Constipation #0 ea 01/21/23 food supplemt, lactose-reduced 0.08 gram-1.5 kcal/mL oral liquid (Ensure Plus High Protein) 120 ml PO TIDCM #0 mL 01/21/23 furosemide 10 mg/mL oral solution 40 mg (4 mL) PO/SL DAILY PRN PRN crackles or wet cough #0 mL 01/21/23 guaifenesin 100 mg/5 mL oral liquid 200 mg (10 mL) PO Q4H PRN PRN productive cough #0 mL 01/21/23 haloperidol lactate 2 mg/mL oral concentrate 5 mg (2.5 mL) PO/SL Q3H PRN PRN agitation/hallucinations #0 mL 01/21/23 hyoscyamine sulfate 0.125 mg sublingual tablet 0.125 mg PO/SL Q4H PRN PRN CONGESTION #0 tabs 01/21/23 ipratropium 0.5 mg-albuterol 3 mg (2.5 mg base)/3 mL nebulization soln 3 ml inhalation Q4H.RT #0 mL 01/21/23 lidocaine HCl 2 % mucosal solution (Lidocaine Viscous) 5 ml PO 4X/DAY PRN stomatitis #0 mL 01/21/23 lorazepam 2 mg/mL oral concentrate 0.5 mg (0.25 mL) sublingual Q4H PRN PRN Agitation #0 mL 01/21/23 melatonin 3 mg tablet 3 mg PO QHS PRN PRN Insomnia #0 tabs 01/21/23 morphine concentrate 10 mg/0.5 mL oral syringe (FOR ORAL USE ONLY) 5 mg (0.25 mL) PO/SL Q2H PRN PRN PAIN 1 day #0 ea 01/21/23 nystatin 100,000 unit/gram topical powder (Nyamyc) 1 applic topical BID #0 grams 01/21/23 peg [id number] 1 %-0.2 %-0.2 % eye drops (Artificial Tears ([id number])) 2 drp EACH EYE Q1H PRN DRY EYES #0 mL 01/21/23 prednisone 10 mg tablet 10 mg PO QDAY #30 tabs 01/21/23 promethazine 25 mg tablet 12.5 mg (1/2 x 25 mg) PO/SL Q6H PRN PRN NAUSEA/VOMITING #0 tabs 01/21/23 saliva substitute combo no.9 (Biotene Dry Mouth Oral Rinse mouthwash) 15 ml mucous membrane Q1H PRN PRN Dry Mouth #0 mL 01/21/23 sennosides 8.6 mg-docusate sodium 50 mg tablet (Stool Softener-Stimulant Laxative) 2 tab PO BID PRN Constipation #0 tabs 01/21/23 sodium chloride 0.9 % for nebulization 3 ml inhalation Q3H PRN PRN thick secretions #0 mL 01/21/23 Hospital Course Summary of Care Provided Minutes Spent on Discharge: 35 Physical Exam Narrative GENERAL: Neck at rest on airvo HEENT: Atraumatic; normocephalic EYES; Anicteric, Normal Conjunctiva NECK; supple, normal thyroid, RESPIRATORY: Diminished to auscultation CARDIOVASCULAR: Regular S1 S2, GI: soft, normoactive bowel sounds, : No Renal angle tenderness; EXTREMITIES: No edema, no clubbing, MUSCULOSKELETAL: no muscle wasting NEURO: Awake; no lateralizing signs. SKIN: No Rash PSYCH; Flat affect Weight / BMI Weight Weight: 60.3 kg Body Mass Index (BMI) 24.3 ABG / Lab / Microbiology Data 01/21/23 05:39 01/21/23 05:39 Laboratory: Laboratory Results - last 24 hr 01/19/23 16:30: Diff Path Review Reviewed 01/21/23 05:39: WBC 15.4 H, RBC 4.31, Hgb 11.9 L, Hct 36.6 L, MCV 84.9, MCH 27.6, MCHC 32.5, RDW Std Deviation 53.1 H, RDW Coeff of Zbigniew 17.2 H, Plt Count 404, MPV 10.1, Immature Gran % (Auto) 4.600 H, Neut % (Auto) 78.2 H, Lymph % (Auto) 12.2 L, Allen % (Auto) 4.8, Eos % (Auto) 0.0, Baso % (Auto) 0.2, Absolute Neuts (auto) 12.1 H, Absolute Lymphs (auto) 1.88, Nucleated RBC % 0, Sodium 139, Potassium 3.8, Chloride 101, Carbon Dioxide 33.0 H, Anion Gap 5, BUN 39 H, Creatinine 0.89, Estim Creat Clear Calc 35.89, Est GFR (MDRD) Af Amer 77, Est GFR (MDRD) Non-Af 64, BUN/Creatinine Ratio 43.7 H, Glucose 138 H, Calcium 8.7, Phosphorus 3.5, Magnesium 2.7 H Microbiology: Microbiology 01/19/23 15:40 Mucosa - Nasopharyngeal Respiratory Panel (PCR) - Final 01/19/23 15:40 Mucosa - Nasopharyngeal Coronavirus COVID-19 PCR - Final 01/19/23 17:10 Urine Catheter - Briggs Legionella Antigen - Final 01/19/23 17:10 Urine Catheter - Briggs Streptococcus pneumoniae Antigen (M - Final D/C Instructions Discharge Diet: No restrictions Discharge Activity: Return to Normal Activity Call your doctor if you observe: Fever of 101 or Higher, Shortness of breath, Fainting spells and Chest pain Meaningful Use Info Meaningful Use Diagnoses (Choose all that apply): None applicable Discharge Plan Admission Admit Date/Time: 01/19/23 15:27 Attending Provider: Obdulio Aquino Primary Care Provider: Ag Taylor Consulting Providers: Eugene Barraza; Karen Schaeffer; Marcelino Stanton; Mario Arnold; Mike Wheeler; Chuy Enriquez; Emma Baker VETERINARY INSPECTOR Discharge Orders/Prescriptions Prescriptions: New acetaminophen 325 mg Tablet 650 mg PO Q4H PRN PRN (Reason: Pain 1-10 Or Fever) Qty: 0 0RF ipratropium-albuterol 0.5 mg-3 mg(2.5 mg base)/3 mL Solution For Nebulization 3 ml inhalation Q4H.RT Qty: 0 0RF albuterol sulfate 2.5 mg /3 mL (0.083 %) Solution For Nebulization 2.5 mg inhalation Q2H PRN PRN (Reason: SOB/Wheezing) Qty: 0 0RF furosemide 10 mg/mL Solution 40 mg PO/SL DAILY PRN PRN (Reason: crackles or wet cough) Qty: 0 0RF melatonin 3 mg Tablet 3 mg PO QHS PRN PRN (Reason: Insomnia) Qty: 0 0RF bisacodyl 10 mg Suppository 10 mg NH DAILY PRN PRN (Reason: Constipation) Qty: 0 0RF hyoscyamine sulfate 0.125 mg Tablet, Sublingual 0.125 mg PO/SL Q4H PRN PRN (Reason: CONGESTION) Qty: 0 0RF lidocaine HCl [Lidocaine Viscous] 2 % Solution 5 ml PO 4X/DAY PRN (Reason: stomatitis) Qty: 0 0RF atropine 1 % Drops 4 drp sublingual Q1H PRN PRN (Reason: Secretions) Qty: 0 0RF lorazepam 2 mg/mL Concentrate 0.5 mg sublingual Q4H PRN PRN (Reason: Agitation) Qty: 0 0RF haloperidol lactate 2 mg/mL Concentrate 5 mg PO/SL Q3H PRN PRN (Reason: agitation/hallucinations) Qty: 0 0RF Ensure Plus High Protein 0.08 gram-1.5 kcal/mL Liquid 120 ml PO TIDCM Qty: 0 0RF morphine concentrate 10 mg/0.5 mL Syringe 5 mg PO/SL Q2H PRN PRN (Reason: PAIN) 1 Days Qty: 0 0RF sodium chloride 0.9 % Solution For Nebulization 3 ml inhalation Q3H PRN PRN (Reason: thick secretions) Qty: 0 0RF sennosides-docusate sodium [Stool Softener-Stimulant Laxat] 8.6-50 mg Tablet 2 tab PO BID PRN (Reason: Constipation) Qty: 0 0RF promethazine 25 mg Tablet 12.5 mg PO/SL Q6H PRN PRN (Reason: NAUSEA/VOMITING) Qty: 0 0RF nystatin [Nyamyc] 100,000 unit/gram Powder 1 applic topical BID Qty: 0 0RF Protocol: *Topical Application Instructions APPLICATION INSTRUCTIONS: apply BID and PRN to affected areas for yeast/rash Artificial Tears([id number]) 1-0.2-0.2 % Drops 2 drp EACH EYE Q1H PRN (Reason: DRY EYES) Qty: 0 0RF Biotene Dry Mouth Oral Rinse Mouthwash 15 ml mucous membrane Q1H PRN PRN (Reason: Dry Mouth) Qty: 0 0RF guaifenesin 100 mg/5 mL Liquid 200 mg PO Q4H PRN PRN (Reason: productive cough) Qty: 0 0RF Continued allopurinol 200 mg tablet 200 mg PO DAILY enalapril maleate 5 mg tablet 20 mg PO DAILY ibuprofen 600 mg tablet 600 mg PO Q8H PRN sertraline 50 mg tablet 50 mg PO DAILY doxepin 25 mg capsule 25 mg PO DAILY prednisone 10 mg tablet 10 mg PO QDAY Qty: 30 0RF Discontinued aspirin 81 mg tablet,delayed release (DR/EC) 81 mg PO DAILY atenolol 50 mg tablet 50 mg PO DAILY furosemide 20 mg tablet 20 mg PO DAILY PRN guaifenesin 1,200 mg tablet extended release 12hr 1,200 mg PO Q12H Qty: 60 6RF amoxicillin-pot clavulanate 875-125 mg tablet 1 tab PO BID Qty: 20 0RF Referrals / Follow Up: Ag Taylor MD [Primary Care Provider] - Disposition Disposition (needs filled in before D/C Order can be placed): Hospice in Medical Facility Charges/Coding Visit Charges Inpatient E&M: 15685 Disch Hosp >30min
--- NOTE | 2023-01-21 13:31 | CASEMGMT ---
Patient will go to the inpatient Hospice unit. Hospice will transport using their mobile unit. Nicole RODRIGUEZ
[2023-01-21] MEDS: MorphINE SOLN 10 MG/0.5 ML PO.SYRINGE 5 MG SL/PO (13:37)
[2023-01-21] MEDS: LORazepam 2 MG/ML Bottle 0.5 MG SL (13:38)
== END 2023-01-21 14:04 | disposition hospice, inpatient (51) | DRG 196 ==
LOC: ICU 01-20 10:42 → PCU 01-20 17:56 → ICU 01-20 18:26
PROVIDERS: Internal Medicine; Admitting Provider Internal Medicine; PCP Family Medicine; Visit Provider Internal Medicine
DX: J84.10 Pulmonary fibrosis, unspecified (principal); J96.21 Acute and chronic respiratory failure with hypoxia; I24.8 Other forms of acute ischemic heart disease; J47.0 Bronchiectasis with acute lower respiratory infection; N30.00 Acute cystitis without hematuria; E87.6 Hypokalemia; M10.9 Gout, unspecified; I10 Essential (primary) hypertension; G62.9 Polyneuropathy, unspecified; E78.5 Hyperlipidemia, unspecified; K21.9 Gastro-esophageal reflux disease without esophagitis; M19.90 Unspecified osteoarthritis, unspecified site; F41.9 Anxiety disorder, unspecified; B96.89 Other specified bacterial agents as the cause of diseases classified elsewhere; Z51.5 Encounter for palliative care; Z66 Do not resuscitate; Z79.52 Long term (current) use of systemic steroids
CPT/HCPCS: 36415; 71045; 74018; 80048; 80053; 81001; 83735; 83880; 84100; 84443; 85025; 87040; 87449; 87633; 87635; 87641; 92526; 92610; 94002; 94003; 94640; 94660; 94668; 94762; 97802; 99252; J7040; A4216; G0463; J1940